=== PATIENT | male | born 1995 | race Caucasian/White ===

== ENCOUNTER 2017-07-25 15:13 | Emergency (ER) | payer OTHER ==
[2017-07-25 15:19] VITALS: BP 154/70
--- NOTE | 2017-07-25 16:00 | ED ---
Lower Extremity - HPI Summary HPI Summary: 21M presents with right ankle pain since yesterday. He states that he rolled his ankle when was running yesterday. He denies any numbness or tingling. He denies any previous injury. He denies any knee pain. He has pain greatest on lateral right ankle. He was able to ambulate but since then has not been able to place weight on the area. His pain is 6/10. - History of Current Complaint Chief Complaint: EDExtremityLower Stated Complaint: RT ANKLE INJURY Time Seen by Provider: 07/25/17 15:24 Pain Intensity: 5 - Allergies/Home Medications Allergies/Adverse Reactions: Allergies Allergy/AdvReac Type Severity Reaction Status Date / Time No Known Allergies Allergy Verified 07/25/17 15:18 PMH/Surg Hx/FS Hx/Imm Hx Endocrine/Hematology History: Denies: Hx Anticoagulant Therapy Cardiovascular History: Denies: Hx Hypertension Infectious Disease History: No Infectious Disease History: Denies: Traveled Outside the [place] in Last 30 Days - Family History Known Family History: Positive: Hypertension - Social History Alcohol Use: Occasionally Substance Use Type: Reports: None Smoking Status (MU): Light Every Day Tobacco Smoker Review of Systems Negative: Fever Negative: Chest Pain Negative: Shortness Of Breath Positive: Myalgia - right ankle All Other Systems Reviewed And Are Negative: Yes Physical Exam Triage Information Reviewed: Yes Vital Signs On Initial Exam: Initial Vitals Temp Pulse Resp BP Pulse Ox 97.0 F 70 16 154/70 100 07/25/17 15:15 07/25/17 15:15 07/25/17 15:15 07/25/17 15:15 07/25/17 15:15 Vital Signs Reviewed: Yes Appearance: Positive: Well-Appearing Skin: Positive: Warm, Dry Head/Face: Positive: Normal Head/Face Inspection Eyes: Positive: Normal, Conjunctiva Clear Respiratory/Lung Sounds: Positive: Clear to Auscultation, Breath Sounds Present Cardiovascular: Positive: Normal, RRR Musculoskeletal: Positive: Limited @ - right ankle, Edema Right - lateral aspect of right ankle, Other - good pulses, capillary refill<2secs - [place] Coma Scale Coma Scale Total: 15 Diagnostics - Vital Signs Vital Signs Temp Pulse Resp BP Pulse Ox 07/25/17 15:15 97.0 F 70 16 154/70 100 - Laboratory Lab Statement: Any lab studies that have been ordered have been reviewed, and results considered in the medical decision making process. - Radiology ankle Xray Interpretation: Positive (See Comments) - IMPRESSION: SOFT TISSUE SWELLING OVERLYING THE FIBULAR MALLEOLUS WITHOUT RADIOGRAPHICALLY APPARENT FRACTURE OR DISLOCATION. If the patient's symptoms persist, follow-up imaging is recommended. Radiology Interpretation Completed By: Radiologist Lower Extremity Course/Dx - Course Course Of Treatment: 21M presents with right ankle pain since yesterday. He states that he rolled his ankle when was running yesterday. He denies any numbness or tingling. He denies any previous injury. He denies any knee pain. He has pain greatest on lateral right ankle. He was able to ambulate but since then has not been able to place weight on the area. His pain is 6/10. on exam has swelling on lateral aspect of right ankle, neurovascular intact. xray read as normal. patient understand and agrees with plan. - Diagnoses Differential Diagnosis/HQI/PQRI: Positive: Fracture (Closed), Sprain, Strain Provider Diagnoses: Right ankle injury Discharge - Discharge Plan Condition: Good Disposition: HOME Patient Education Materials: Ankle Sprain (ED) Referrals: [facility] - Mauri BARGER [Primary Care Provider] - Additional Instructions: Stay off ankle as much as possible Ice, elevate, keep in [place] Ibuprofen every 6 hours for pain Follow up with primary if no improvement Return to ED if develop or any new or worsening symptoms
--- NOTE | 2017-07-25 16:22 | RAD ---
INDICATION: Soft tissue swelling overlying the lateral malleolus after a fall COMPARISON: None. TECHNIQUE: 3 views of the right ankle were obtained. FINDINGS: There is mild soft tissue swelling overlying the fibular malleolus. The bones are normal alignment. Joint spaces appear maintained. No fracture is seen. IMPRESSION: SOFT TISSUE SWELLING OVERLYING THE FIBULAR MALLEOLUS WITHOUT RADIOGRAPHICALLY APPARENT FRACTURE OR DISLOCATION. If the patient's symptoms persist, follow-up imaging is recommended.
== END 2017-07-25 16:54 | disposition home or self-care (01) ==
LOC: ED 15:13
DX: S99.911A Unspecified injury of right ankle, initial encounter (principal); X50.0XXA Overexertion from strenuous movement or load, initial encounter; Y93.02 Activity, running; Y92.9 Unspecified place or not applicable; F17.200 Nicotine dependence, unspecified, uncomplicated
CPT/HCPCS: 99282